=== PATIENT | female | born 1930 | race Caucasian/White ===

== ENCOUNTER 2020-04-12 10:38 | Emergency (ER) | payer MEDICARE ==
[~2020-04-12] VITALS: Ht 152.4 cm; Wt 56.8 kg
[~2020-04-12 10:38] MED LIST: AMLO10TA55 PO; ATEN-188 PO; BIMA5DRO OP; LISI10TA7 PO; MECL-183 PO; SIMV-43 PO; TIMO5DRO35 OP
[2020-04-12] MEDS ORDERED: METO25 PO (11:09)
[2020-04-12] MEDS ORDERED: LEVO75 PO (11:09)
[2020-04-12] MEDS ORDERED: CALC-840 PO (11:09)
[2020-04-12] MEDS ORDERED: BIMA12.5OS OU (11:11)
[2020-04-12] MEDS ORDERED: BRIM155OS OU (11:11)
[2020-04-12] MEDS ORDERED: CITA-144 PO (11:11)
[2020-04-12] MEDS ORDERED: POLY17PO47 PO (11:11)
[2020-04-12 11:21] LABS: BASOPHILS % (AUTO) 0.4 % (0.0-2.0); EOSINOPHILS % (AUTO) 0.7 % (1.0-6.0); HEMATOCRIT 36.1 % (36-46); HEMOGLOBIN 12.5 g/dL (12.0-16.0); LYMPHOCYTES # (AUTO) 1.1 K/uL (1.0-4.8); LYMPHOCYTES % (AUTO) 17.1 % (22.0-44.0); MEAN CORPUSCULAR HGB CONC 34.6 G/dL (31.0-37.0); MEAN CORPUSCULAR VOLUME 98 fL (80-100); MONOCYTES # (AUTO) 0.5 K/uL (0.1-1.0); MONOCYTES % (AUTO) 7.4 % (2.0-9.0); NEUTROPHILS # (AUTO) 4.9 K/uL (1.8-7.7); NEUTROPHILS % (AUTO) 74.4 % (40.0-70.0); PLATELET COUNT (AUTO) 190 K/uL (150-450); RED BLOOD CELL COUNT(AUTO) 3.67 MIL/uL (4.00-5.20); RED CELL DISTRIBUTION WIDTH 13.5 % (11.5-14.5)
[2020-04-12 11:34] LABS: PROTHROMBIN TIME 10.6 SEC (9.4-11.6)
[2020-04-12 11:40] LABS: CALCIUM, TOTAL 8.7 mg/dL (8.8-10.5); CREATININE 1.05 mg/dL (0.60-1.30); POTASSIUM 4.6 mmol/L (3.5-5.1)
[2020-04-12 11:45] LABS: ALBUMIN 3.1 g/dL (3.4-5.0); BILIRUBIN,TOTAL 0.9 mg/dL (0.1-1.0); TOTAL PROTEIN, SERUM 6.7 g/dL (6.4-8.2)
[2020-04-12 14:10] LABS: APPEARANCE,URINE CLEAR (CLEAR); BILIRUBIN,URINE NEGATIVE (NEGATIVE); GLUCOSE, URINE (UA) NEGATIVE (NEGATIVE); KETONES,URINE NEGATIVE (NEGATIVE); LEUKOCYTE ESTERASE ,URINE NEGATIVE (NEGATIVE); NITRATE,URINE NEGATIVE (NEGATIVE); OCCULT BLOOD,URINE NEGATIVE (NEGATIVE); PH,URINE 7.5 (5.0-8.0); PROTEIN,URINE NEGATIVE (NEGATIVE); UROBILINOGEN,URINE 0.2 mg/dL (<=1.0)
[2020-04-12 14:30] VITALS: BP 137/81
== END 2020-04-12 15:14 | disposition home or self-care (01) ==
LOC: EMS 10:39
DX: R42 Dizziness and giddiness (principal); R11.0 Nausea; R55 Syncope and collapse; I10 Essential (primary) hypertension; Z90.710 Acquired absence of both cervix and uterus
CPT/HCPCS: 93005; 36415-L1; 36415-TC; 71045-TC; 81003-TC